=== PATIENT | female | born 1945 | race Caucasian/White ===

== ENCOUNTER 2017-02-12 14:39 | Emergency (ER) | payer MEDICARE, OTHER ==
[~2017-02-12 14:39] MED LIST: IMDUR ER TAB 6060 MG PO
[2017-02-12 15:53] LABS: HEMOGLOBIN 13.5 gm/dl (12.3-15.3); RED BLOOD COUNT 4.3 M/UL (4.00-5.10); WHITE BLOOD COUNT 8.1 K/UL (4.5-11.0)
[2017-02-12 16:17] LABS: BUN/CREATININE RATIO 28 (0-10)
== END 2017-02-12 19:25 | disposition home or self-care (01) ==
LOC: ER1 14:39
PROVIDERS: Physician Assistant
DX: E11.649 Type 2 diabetes mellitus with hypoglycemia without coma (principal); I10 Essential (primary) hypertension; J44.9 Chronic obstructive pulmonary disease, unspecified; E78.5 Hyperlipidemia, unspecified; F41.9 Anxiety disorder, unspecified; F17.200 Nicotine dependence, unspecified, uncomplicated; Z88.0 Allergy status to penicillin; Z88.8 Allergy status to other drugs, medicaments and biological substances; Z95.1 Presence of aortocoronary bypass graft; Z95.0 Presence of cardiac pacemaker; Z79.82 Long term (current) use of aspirin; Z79.4 Long term (current) use of insulin; Z79.84 Long term (current) use of oral hypoglycemic drugs; Z79.899 Other long term (current) drug therapy
CPT/HCPCS: 36415; 70450; 71010; 80053; 82550; 82553; 83874; 84484; 85025; 93005; 99285